=== PATIENT | female | born 1975 | race Caucasian/White ===

== ENCOUNTER 2016-02-29 18:05 | Emergency (ER) | payer MEDICAID ==
[~2016-02-29] VITALS: Ht 160 cm; Wt 58.3 kg
[~2016-02-29 18:05] MED LIST: IBUP-1542 PO
[2016-02-29 18:07] VITALS: Ht 160 cm; Wt 58.3 kg
--- NOTE | 2016-02-29 20:10 | RADRPT ---
PROCEDURE: CR, chest CLINICAL INDICATION: Cough/shortness of breath. TECHNIQUE: AP chest. COMPARISON: None available. FINDINGS: The heart is not enlarged. There is no acute infiltrate in the lungs. No pleural effusion. IMPRESSION: 1. Unremarkable chest x-ray. RPTAT: GG .Genaro Jimenez MD, Date Time Electronically viewed and signed by .Genaro Jimenez MD, on 02/29/2016 20:09 .Y/
--- NOTE | 2016-02-29 20:14 | ERD ---
ER Documentation Chief Complaint Date/Time DATE: 02/29/16 TIME: 20:09 Chief Complaint FEELS DIZZY TODAY HPI This patient is a 40-year-old female with no significant medical history presenting to the emergency department for acute anxiety and unsteady legs which has been intermittent for the past week. The patient reports some family issues at home which she believes are causing her symptoms. Additionally she reports tingling in her hands and feet and feeling her heart is racing and difficulty catching her breath which only occurs when she feels anxious. She denies any homicidal ideation or suicidal ideation. She has taken no medications but has been using tea remedies at home with mild relief of her symptoms. The patient denies any chest pain, urinary symptoms, nausea, vomiting , diarrhea, or other symptoms at this time. There are no other alleviating or exacerbating factors at this time. ROS All systems reviewed and are negative except as per history of present illness. Medications Home Meds Active Scripts Lorazepam* (Ativan*) 0.5 Mg Tablet, 0.5 MG PO Q8H Y for ANXIETY, #6 TAB Prov:DARLENE NEWBY PA-C 02/29/16 Ibuprofen* (Motrin*) 600 Mg Tab, 600 MG PO Q6, #30 TAB Prov:BRIAN ELLINGTON 01/07/16 Allergies Allergies: Coded Allergies: No Known Allergy (Unverified , 01/07/16) PMhx/Soc History of Surgery: No Anesthesia Reaction: No Hx Neurological Disorder: No Hx Respiratory Disorders: No Hx Cardiac Disorders: No Hx Psychiatric Problems: No Hx Miscellaneous Medical Probl: No Hx Alcohol Use: No Hx Substance Use: No Hx Tobacco Use: No FmHx Noncontributory for chief complaint. Physical Exam Vitals Vital Signs Date Time Temp Pulse Resp B/P Pulse Ox O2 Delivery O2 Flow Rate FiO2 02/29/16 18:07 98.1 88 18 132/58 99 Physical Exam Const: The patient is non-ill appearing. The patient is in no acute distress. Head: Atraumatic Eyes: Normal Conjunctiva ENT: Normal External Ears, Nose and Mouth. Neck: Full range of motion..~ No meningismus. Resp: Clear to auscultation bilaterally Cardio: Regular rate and rhythm, no murmurs Abd: Soft, non tender, non distended. Normal bowel sounds Skin: No petechiae or rashes Back: No midline or flank tenderness Ext: No cyanosis, or edema Neur: Awake and alert Psych: Normal Mood and Affect Procedures/MDM EKG: Interpreted by ED physician Rate/Rhythm: Normal sinus rhythm with a rate of 85 bpm. QRS, ST, T-waves: No changes consistent w/ acute ischemia Impression: No evidence of ischemia or arrhythmia Chest X-ray 1V Interpreted by radiologist Soft Tissue: No acute abnormalities Bones: No acute abnormalities Mediastinum/Cardiac Silhouette/Lungs: No acute abnormalities MDM: 40-year-old female with no significant medical history presenting to the emergency department for acute anxiety which has been intermittent for the past week. On physical examination the patient is in no acute distress. EKG interpretation shows no signs of acute ischemia. Chest x-ray shows no infiltrates or other cardiopulmonary disease. The primary diagnosis is anxiety and I have ruled out acute cardiac ischemia and any lung pathology. At this time the patient is stable for discharge and outpatient treatment with a prescription for Ativan to be taken only as needed for acute anxiety. The patient agrees with the plan and her questions and concerns have been addressed. Departure Diagnosis: Primary Impression: Anxiety Condition: Stable Patient Instructions: Treating Anxiety Disorders with Medication, Understanding Anxiety Disorders Additional Instructions: Follow-up with your primary care physician within 1 week. Return to the emergency department immediately should you have any new or worsening symptoms, uncontrolled fevers, or other unexplained symptoms. Take all medications as directed. DARLENE NEWBY PA-C Feb 29, 2016 20:13
[2016-02-29] MEDS ORDERED: LORA-441 PO (20:17)
[2016-02-29 20:44] VITALS: BP 112/58; PULSE 78; RESP 20
== END 2016-02-29 20:44 | disposition home or self-care (01) ==
LOC: FTE 18:05
DX: F41.9 Anxiety disorder, unspecified (principal)
CPT/HCPCS: 71010; Z7502; 93005